=== PATIENT | female | born 1945 | race Caucasian/White ===

== ENCOUNTER 2016-11-21 10:09 | Emergency (ER) | payer OTHER, MEDICARE ==
[~2016-11-21 10:09] MED LIST: ASPIRIN EC81 M1 PO; B SUPREME PO; CO Q-10200 MG PO; HAWTHORN150 MG PO; HORSE CHESTNUT300 M1 PO; NATTOKINASE PO; [UNRECOGNIZED DRUG - CODE] PO; [UNRECOGNIZED DRUG - OTHER] PO; [UNRECOGNIZED DRUG - OTHER] PO
[2016-11-21 10:40] LABS: ABSOLUTE BASOPHIL COUNT 0 /CUMM (0.0-0.2); ABSOLUTE EOSINOPHIL COUNT 0.3 /CUMM (0.0-0.7); ABSOLUTE GRANULOCYTE CT 3.1 /CUMM (1.4-6.5); ABSOLUTE LYMPH COUNT 0.8 /CUMM (1.2-3.4); ABSOLUTE MONOCYTE COUNT 0.4 /CUMM (0.10-0.60); BASOPHIL % 0.3 % (0.0-2.0); HEMATOCRIT 40.8 % (37-47); MEAN CORPUSCULAR HGB 31.3 PG (27.0-31.0); MEAN CORPUSCULAR HGB CONC 34.2 G/DL (33.0-37.0); MEAN CORPUSCULAR VOLUME 91.6 FL (81.0-99.0); MEAN PLATELET VOLUME 8.5 FL (7.4-10.4); PLATELET COUNT 180 /CUMM (130-400); RBC DISTRIBUTION WIDTH 12.4 % (11.5-14.5); RED BLOOD CELL CT 4.46 /CUMM (4.20-5.40); WHITE BLOOD CELL COUNT 4.6 /CUMM (4.8-10.8)
--- NOTE | 2016-11-21 11:39 | ED GENERAL ADULT ---
History of Present Illness General Chief Complaint: Dizziness Stated Complaint: DIZZY Source: patient Exam Limitations: no limitations Allergies Coded Allergies: No Known Allergies (05/21/16) Reconcile Medications [ALLERDHQ] 1 CAP PO TID ALLERGIES (Reported) [B-SUPREME] 1 CAP PO QAM SUPPLEMENT (Reported) Broccoli Flower (Broccoli) (Unknown Strength) TABLET 1 CAP PO BID SUPPLEMENT (Reported) [place] (Unknown Strength) CAPSULE (Unknown Dose) PO DAILY SUPPLEMENT ( Reported) Horse [place] Seed (H[place]) (Unknown Strength) CAPSULE (Unknown Dose) PO BID PRN SUPPLEMENT (Reported) [NATTOKINASE XYM] 1 CAP PO BID SUPPLEMENT (Reported) [REGENEMAX] 1 CAP PO DAILY SUPPLEMENT (Reported) Ubidecarenone (Co Q-10) (Unknown Strength) CAPSULE (Unknown Dose) PO BID SUPPLEMENT (Reported) Triage Note: PT PRESENTS TO ER C/O OF DIZZINESS SINCE LAST NIGHT. PT STATES SHE HAS BEEN DIZZY ON AND OFF SINCE LAST NIGHT. PT DENIES FEELING LIKE THE ROOM IS SPINNING. PT STATES LAST NIGHT SHE ALSO FELT WINDED Triage Nurses Notes Reviewed? yes Onset: Abrupt Duration: day(s): Timing: recent history HPI: 11/21/16 12 PM 71-year-old female presents to the emergency department for profound weakness. The patient states she's been dizzy and weak over the past several days, she said several days ago she had an episode where she felt like she was lightheaded and going to pass out. She denies any chest pain or shortness of breath. She has second episode last night and then a third episode this morning where she had weakness and dizziness. No vertigo. No chest pain no objective shortness of breath. No fever. No abdominal pain. The onset of the symptoms were abrupt , the duration was 7 days, the severity is significant as her symptoms required her to come to the emergency department for care. (MICHELLE OLVERA DO) Vital Signs & Intake/Output Vital Signs & Intake/Output Vital Signs Date Time Temp Pulse Resp B/P Pulse O2 O2 Flow FiO2 Ox Delivery Rate 11/21 1716 98.1 73 16 120/58 98 Room Air 11/21 1440 98.0 74 18 130/64 94 Room Air 11/21 1332 97.8 80 20 127/58 96 Room Air 11/21 1108 98.0 84 20 141/73 98 Room Air 11/21 1043 96 11/21 1012 98.1 98 20 120/80 98 Room Air Past History Travel History Traveled to [place] past 21 day No Medical History Any Pertinent Medical History? 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 No (MICHELLE OLVERA DO) Review of Systems Review of Systems Constitutional: Denies: fever. EENTM: Denies: visual changes. Respiratory: Denies: short of breath (admits to rapid breathing). Cardiovascular: Denies: chest pain. GI: Denies: abdominal pain. Genitourinary: Reports: no symptoms. Musculoskeletal: Reports: no symptoms. Skin: Denies: rash. Neurological/Psychological: Reports: other (dizziness). Denies: headache. Hematologic/Endocrine: Denies: bruising, bleeding. (MICHELLE OLVERA DO) Physical Exam Physical Exam General Appearance: well developed/nourished, alert, awake, anxious, mild distress Head: atraumatic, normal appearance Eyes: Bilateral: normal appearance, PERRL, EOMI. Ears, Nose, Throat: normal pharynx, normal ENT inspection, hearing grossly normal Neck: normal inspection, supple, full range of motion Respiratory: normal breath sounds, chest non-tender, no respiratory distress Cardiovascular: regular rate/rhythm Peripheral Pulses: 4+ radial (R), 4+ radial (L) Gastrointestinal: non-tender Back: normal range of motion Extremities: normal inspection, normal range of motion, no edema Neurologic/Psych: no motor/sensory deficits, awake, alert, oriented x 3 Skin: intact, normal color, warm/dry Core Measures ACS in differential dx? Yes CVA/TIA Diagnosis: No Severe Sepsis Present: No Septic Shock Present: No (MICHELLE OLVERA DO) Progress Differential Diagnoses I considered the following diagnoses in my evaluation of the patient: [Viral syndrome, vertigo, labyrinthitis, Mnire's disease, CVA, acute coronary syndrome, dysrhythmia, atrial fibrillation, sepsis] Plan of Care: Orders Procedure Date/time Status Add-on Test (ER Only) 11/21 1549 Active THYROID STIMULATING HORMONE 11/21 1500 Complete FREE T4 11/21 1500 Complete TROPONIN LEVEL 11/21 1459 Complete EKG 11/21 1459 Active Add-on Test (ER Only) 11/21 1215 Active D-DIMER 11/21 1030 Complete TROPONIN LEVEL 11/21 1027 Complete COMPREHENSIVE METABOLIC PANEL 11/21 1027 Complete CBC WITHOUT DIFFERENTIAL 11/21 1027 Complete EKG 11/21 1013 Active Laboratory Tests 11/21/16 1500: Troponin I < 0.01, TSH 1.140, Free T4 1.17 11/21/16 1030: D-Dimer < 200 11/21/16 1028: Anion Gap 11, Estimated GFR > 60, BUN/Creatinine Ratio 26.7 H, Glucose 107 H, Calcium 9.3, Total Bilirubin 0.7, AST 22, ALT 29, Alkaline Phosphatase 80, Troponin I < 0.01, Total Protein 6.7, Albumin 4.2, Globulin 2.5, Albumin/ Globulin Ratio 1.7, CBC w Diff NO MAN DIFF REQ, RBC 4.46, MCV 91.6, MCH 31.3 H, RDW 12.4, MPV 8.5, Gran % 67.0, Lymphocytes % 17.3 L, Monocytes % 9.4 H, Eosinophils % 6.0 H, Basophils % 0.3, Absolute Granulocytes 3.1, Absolute Lymphocytes 0.8 L, Absolute Monocytes 0.4, Absolute Eosinophils 0.3, Absolute Basophils 0, PUBS MCHC 34.2 11/21/2016 3:26:15 PM Patient signed out to me by Dr. Olvera. Pending repeat EKG and troponin. Repeat troponin negative. Thyroid function within normal limits. She will follow up outpatient with cardiology. (CHEMA PENNINGTON MD) Initial ED EKG: NSR, nonspecific ST T wave chg (MICHELLE OLVERA DO) Repeat EKG: unchanged (CHEMA PENNINGTON MD) Departure Departure Condition: Stable Referrals: JOAO KEMP MD (PCP/Family) Departure Forms: Customer Survey General Discharge Information Comments 11/21/16 3 PM The patient was signed out to Dr. Pennington. Follow repeat troponin and EKG (MICHELLE OLVERA DO) Departure Time of Disposition: 1706 Disposition: HOME OR SELF CARE Clinical Impression Primary Impression: Dizziness Additional Instructions: Follow-up with your doctor in the office. Your thyroid function tests in the emergency department today were normal. Return to the ER for any changing or worsening symptoms. (DELMER CHAVEZ,CHEMA) Critical Care Note Critical Care Note Critical Care Time: non-applicable (MICHELLE OLVERA DO)
--- NOTE | 2016-11-21 12:47 | RADIOLOGY REPORT ---
EXAMINATION: XR PORTABLE CHEST CLINICAL INFORMATION: Shortness breath. Evaluate for pneumonia. COMPARISON: Chest radiograph 02/24/2016. TECHNIQUE: Portable AP view of the chest was obtained. FINDINGS: Lungs are clear and well expanded. No focal consolidative disease, pleural effusion, or pneumothorax. The cardiac silhouette and upper mediastinal contours are normal. No acute osseous finding. Cardiac leads overly the chest. IMPRESSION: Unremarkable chest radiograph. No consolidative disease or effusion.
[2016-11-21 17:16] VITALS: BP 120/58
== END 2016-11-21 17:17 ==
LOC: ERH 10:09
PROVIDERS: Emergency Medicine
DX: R42 Dizziness and giddiness (principal)
CPT/HCPCS: 93005; 93010

== ENCOUNTER 2017-01-16 19:08 | Emergency (ER) | payer OTHER, MEDICARE ==
[~2017-01-16] VITALS: Ht 170.2 cm; Wt 61.2 kg
[2017-01-16 20:45] LABS: ABSOLUTE BASOPHIL COUNT 0 /CUMM (0.0-0.2); ABSOLUTE EOSINOPHIL COUNT 0 /CUMM (0.0-0.7); ABSOLUTE GRANULOCYTE CT 3.2 /CUMM (1.4-6.5); ABSOLUTE LYMPH COUNT 0.2 /CUMM (1.2-3.4); ABSOLUTE MONOCYTE COUNT 0.4 /CUMM (0.10-0.60); BASOPHIL % 0.4 % (0.0-2.0); EOSINOPHIL % 0.8 % (0-5); GRANULOCYTE % 83.2 % (42.2-75.2); HEMATOCRIT 37.4 % (37-47); MEAN CORPUSCULAR HGB CONC 34.2 G/DL (33.0-37.0); MEAN CORPUSCULAR VOLUME 90.7 FL (81.0-99.0); MEAN PLATELET VOLUME 8.5 FL (7.4-10.4); PLATELET COUNT 129 /CUMM (130-400); RBC DISTRIBUTION WIDTH 12.7 % (11.5-14.5); RED BLOOD CELL CT 4.12 /CUMM (4.20-5.40); WHITE BLOOD CELL COUNT 3.9 /CUMM (4.8-10.8)
--- NOTE | 2017-01-16 21:36 | ED GENERAL ADULT ---
History of Present Illness General Chief Complaint: General Adult Stated Complaint: ELAVATED BP/NIELSON Source: patient, family Exam Limitations: no limitations Vital Signs & Intake/Output Vital Signs & Intake/Output Vital Signs Date Time Temp Pulse Resp B/P Pulse O2 O2 Flow FiO2 Ox Delivery Rate 01/16 2159 97.8 77 16 141/71 95 Room Air 01/16 2143 Room Air 01/16 1912 98.9 85 16 139/81 96 Room Air Allergies Coded Allergies: No Known Allergies (05/21/16) Reconcile Medications [ALLERDHQ] 1 CAP PO TID ALLERGIES (Reported) [B-SUPREME] 1 CAP PO QAM SUPPLEMENT (Reported) Broccoli Flower (Broccoli) (Unknown Strength) TABLET 1 CAP PO BID SUPPLEMENT (Reported) Furosemide (Lasix) 40 MG TABLET 1 TAB PO DAILY FLUID OVERLOAD [place] (Unknown Strength) CAPSULE (Unknown Dose) PO DAILY SUPPLEMENT ( Reported) Horse [place] Seed (H[place]) (Unknown Strength) CAPSULE (Unknown Dose) PO BID PRN SUPPLEMENT (Reported) [NATTOKINASE XYM] 1 CAP PO BID SUPPLEMENT (Reported) [REGENEMAX] 1 CAP PO DAILY SUPPLEMENT (Reported) Ubidecarenone (Co Q-10) (Unknown Strength) CAPSULE (Unknown Dose) PO BID SUPPLEMENT (Reported) Triage Note: PT STATES SHE HAS NAUSEA SOB AND A NIELSON THAT STARTED TODAY. Triage Nurses Notes Reviewed? yes HPI: Patient is noticed that over the past 2-3 weeks she's been having increasing dyspnea on exertion the point that she needs. Abilify the stairs as well as needed to sleep in the semireclined position because every time she lays flat she feels very anxious. Patient was seen by a doctor yesterday and was told that she has PTSD. Patient has been trying naturopathic medicine which has not been helping. Patient denies any chest pain or palpitations. Patient took her blood pressure this afternoon with a home blood pressure cuff and it was 168/90. Patient is been feeling more anxious so she comes in for evaluation. Past History Travel History Traveled to [place] past 21 day No Medical History Any Pertinent Medical History? 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 No Review of Systems Review of Systems Constitutional: Reports: no symptoms. EENTM: Reports: no symptoms. Respiratory: Reports: see HPI, short of breath. Cardiovascular: Reports: no symptoms. GI: Reports: no symptoms. Genitourinary: Reports: no symptoms. Musculoskeletal: Reports: no symptoms. Skin: Reports: no symptoms. Neurological/Psychological: Reports: see HPI, anxiety. Hematologic/Endocrine: Reports: no symptoms. Immunologic/Allergic: Reports: no symptoms. All Other Systems: Reviewed and Negative Physical Exam Physical Exam General Appearance: well developed/nourished, alert, awake, anxious, mild distress Head: atraumatic, normal appearance Eyes: Bilateral: PERRL, EOMI. Ears, Nose, Throat: normal pharynx, normal ENT inspection Neck: normal inspection, supple, JVD Respiratory: normal breath sounds, chest non-tender, no respiratory distress, lungs clear Cardiovascular: regular rate/rhythm, normal peripheral pulses Gastrointestinal: normal bowel sounds, soft, non-tender, no organomegaly Back: normal inspection Extremities: normal inspection, normal capillary refill, normal range of motion, no edema Neurologic/Psych: no motor/sensory deficits, awake, alert, oriented x 3, normal gait, normal mood/affect Skin: intact, normal color, warm/dry Core Measures ACS in differential dx? Yes ASA ordered for poss ACS? Yes-ordered CVA/TIA Diagnosis: No Severe Sepsis Present: No Septic Shock Present: No Progress Differential Diagnoses I considered the following diagnoses in my evaluation of the patient: [CHF WITH PULM EDEMA, AMI, ACS, ANXIETY] Plan of Care: Orders Procedure Date/time Status Add-on Test (ER Only) 01/16 2137 Active B-TYPE NATRIURETIC PEP (BNP) 01/17 2032 Complete URINALYSIS 01/16 2017 Complete TROPONIN LEVEL 01/16 2017 Complete COMPREHENSIVE METABOLIC PANEL 01/16 2017 Complete CBC WITHOUT DIFFERENTIAL 01/16 2017 Complete EKG 01/16 2017 Active Laboratory Tests 01/16/176: Urine Color YEL, Urine Clarity CLEAR, Urine pH 6.0, Ur Specific [place] 1.020, Urine Protein NEG, Urine Ketones >=80, Urine Nitrite NEG, Urine Bilirubin NEG, Urine Urobilinogen 0.2, Ur Leukocyte Esterase NEG, Ur Microscopic SEDIMENT EXAMINED, Urine RBC 5-10 H, Ur Epithelial Cells RARE, Urine Bacteria RARE H, Urine Hemoglobin MOD H, Urine Glucose NEG 01/16/172031: Anion Gap 10, Estimated GFR > 60, BUN/Creatinine Ratio 20.0, Glucose 102 H, Calcium 9.3, Total Bilirubin 0.9, AST 24, ALT 32, Alkaline Phosphatase 89, Troponin I < 0.01, Dah-E-Untvajozbwa Pept 750 H, Total Protein 6.7, Albumin 4.2 , Globulin 2.5, Albumin/Globulin Ratio 1.7, CBC w Diff MAN DIFF ORDERED, RBC 4.12 L, MCV 90.7, MCH 31.0, RDW 12.7, MPV 8.5, Gran % 83.2 H, Lymphocytes % 5.3 L, Monocytes % 10.3 H, Eosinophils % 0.8, Basophils % 0.4, Absolute Granulocytes 3.2, Segmented Neutrophils 80 H, Band Neutrophils 6 H, Absolute Lymphocytes 0.2 L, Lymphocytes 7 L, Monocytes 7, Absolute Monocytes 0.4, Absolute Eosinophils 0, Absolute Basophils 0, Platelet Estimate ADEQUATE, Anisocytosis 1+, Macrocytic Cells 1+, PUBS MCHC 34.2 Diagnostic Imaging: Viewed by Me: Radiology Read. Discussed w/RAD: Radiology Read. CXR Impression: PATIENT: PIEDAD OAKES PRESENT AGE: 71 PATIENT ACCOUNT NO: [id number] : 47 LOCATION: [facility] ORDERING PHYSICIAN: HIRAM FRIAS MD SERVICE DATE: 01/16/17 EXAM TYPE: RAD - XRY-CHEST XRAY, PA AND LATERAL EXAMINATION: XR CHEST CLINICAL INFORMATION: 71-year-old female with orthopnea. COMPARISON: Portable chest x-ray on 11/21/2016. (No acute ). TECHNIQUE: PA and lateral erect views of the chest. FINDINGS: No significant abnormality is noted involving the heart, lungs, mediastinum, bony thorax or soft tissues. A moderate pectus excavatum deformity is present. IMPRESSION: No evidence of CHF. DICTATED BY: JIM AMEZCUA MD DATE/TIME DICTATED:01/16/172242 CAPTION WRITER:OTTO DATE/TIME TRANSCRIBED:01/16/172242 CONFIDENTIAL, DO NOT COPY WITHOUT APPROPRIATE AUTHORIZATION. <Electronically signed in Other Vendor System> SIGNED BY: JIM AMEZCUA MD 01/16/172 Initial ED EKG: NSR, no ST T wave changes Prior EKG: unchanged Comments: Case was discussed with Dr. Ambriz. Patient will receive IV Lasix in the emergency department and has long as she diureses well she may be discharged home and she will follow up with cardiology tomorrow. The plan was discussed with the patient and her family and they feel comfortable with the plan. Departure Departure Disposition: HOME OR SELF CARE Condition: Stable Clinical Impression Primary Impression: CHF (congestive heart failure) Referrals: NICHOLAS CHAVEZ,JANE KEMP MD,JOAO Euceda (PCP/Family) Additional Instructions: FOLLOW UP WITH DR. PTEERSON (OR ONE OF HIS PARTNERS) TOMORROW RETURN IF SYMPTOMS WORSEN OR FOR ANY CONCERNS Departure Forms: Customer Survey General Discharge Information Prescriptions: Current Visit Scripts Furosemide (Lasix) 1 TAB PO DAILY #30 TAB Critical Care Note Critical Care Note Critical Care Time: non-applicable
--- NOTE | 2017-01-16 22:49 | RADIOLOGY REPORT ---
EXAMINATION: XR CHEST CLINICAL INFORMATION: 71-year-old female with orthopnea. COMPARISON: Portable chest x-ray on 11/21/2016. (No acute). TECHNIQUE: PA and lateral erect views of the chest. FINDINGS: No significant abnormality is noted involving the heart, lungs, mediastinum, bony thorax or soft tissues. A moderate pectus excavatum deformity is present. IMPRESSION: No evidence of CHF.
[2017-01-16] MEDS ORDERED: LASIX40 M1 PO (23:09)
[2017-01-17 00:25] VITALS: BP 139/80
== END 2017-01-17 00:26 ==
LOC: ERH 19:08
PROVIDERS: Emergency Medicine
DX: I50.9 Heart failure, unspecified (principal); Z87.891 Personal history of nicotine dependence
CPT/HCPCS: 81001; 93005; 93010